=== PATIENT | male | born 1950 | race Caucasian/White ===

== ENCOUNTER 2019-12-03 09:01 | Outpatient (CLI) | payer MEDICARE, OTHER, SELFPAY ==
--- NOTE | 2019-12-10 04:54 | SLEEP_ITS ---
CPAP Titration DATE OF STUDY: 12/03/2019 ORDERING PHYSICIAN: Annia Rico M.D. REASON FOR THIS STUDY: Obstructive sleep apnea syndrome on a prior test. HISTORY: This 69-year-old man is 71 inches tall, weighing 215 pounds with a body mass index of 30. On a prior study April 17, 2019, he had an apnea-hypopnea index of 26.6 and a supine REM index of 46.4, which is severe. His minimum saturation was 83%. He had an atrial fibrillation event in March and was hospitalized for it. He did not have atrial fibrillation on the prior sleep study. He does have sleep-related complaints including occasional sweating excessively at night and occasionally falling asleep during the day, but never involuntarily. He rarely falls asleep while driving. He reported waking 4 to 5 times at night to rollover and then will fall back asleep shortly. He does take naps. He feels better in the afternoon and evening compared to the morning. He drinks 1 cup of coffee in the morning. His sleep quality has improved since he retired. He does not awaken with a dry mouth. He has occasional swelling in his ankles toward the end of the day. He has GERD, severe nasal inflammation and is being treated for both of these. He returns for a CPAP titration after we talked about the risk of recurrent atrial fibrillation with untreated sleep apnea. MEDICAL COMORBIDITIES: Episode of atrial fibrillation in March 2019, remote peptic ulcer disease, snoring, psoriasis, anemia, obstructive sleep apnea syndrome on a prior test April 17, 2019, and chronic rhinitis. MEDICATIONS: 1. Zyrtec 1 daily. 2. Vitamin D daily. 3. Vitamin B12 daily. 4. Multivitamins daily. 5. [place]-3 fatty acids daily. 6. Omeprazole 40 mg daily. 7. Vitamin E daily. 8. He also takes apixaban 5 mg p.o. b.i.d. 9. Diltiazem 180 mg extended release daily. 10. Flonase daily. HABITS: No tobacco. Rare alcohol. No recreational drugs. DESCRIPTION OF THE STUDY: On the [place] Sleepiness Scale, his score was 6. This was conducted as a full night CPAP titration using the CO Everywhere multiple channel system including EOG, EEG, submental EMG, EKG, nasal and oral airflow using thermistors and nasal pressure sensors, chest and abdominal belts, body position data and pulse oximetry. This study was scored using [facility] guidelines. Duration of the study was 480 minutes. The sleep time was 231 minutes. The sleep efficiency was 48.2%. Sleep latency was 11.3 minutes. REM latency was 79 minutes. He had 46 awakenings and spent 50.7% of the study awake after sleep onset 237 minutes. Sleep architecture showed 9.3% stage I sleep, 29.9% stage II sleep, no stage III sleep, and 10.1% stage REM. He spent 7.4% of this study supine. He had 3 REM episodes. His sleep was extremely fragmented with long episodes of wakefulness throughout the entire study and frequent shifts between stage wake, stage I, and stage II. The apnea-hypopnea index was 12.7. The obstructive index was 12.2, and the central index was 0.5. He had 1 obstructive hypopnea in supine REM for an index of 4.6. He had 6 obstructive hypopneas in non-supine REM for an index of 10.4. He had 1 obstructive apnea and 3 obstructive hypopneas in supine non-REM for an index of 11.1. He had 15 obstructive hypopneas, 2 central apneas and 21 obstructive hypopneas in non-supine non-REM for an index of 14.1. The supine index was 8.7, and the non-supine index was 13.4. The minimum desaturation was 84%. He spent 4.9 minutes below 88%, 1% of the study. He had 47 desaturations of 4% or greater for an index of 5.9. REM desaturation index was 11.4. AROUSALS: Eighty-five arousals for an index of 10.6. He had 10 apneas for an index of 1.3, 14 hypopneas for an index of 1.8, 10, snores for an index of 1.3, 40 spon
== END 2019-12-03 09:02 | disposition home or self-care (01) ==
LOC: ANHCSM 09:05
PROVIDERS: PCP Family Medicine; Visit Provider Internal Medicine Critical Care Medicine
DX: G47.33 Obstructive sleep apnea (adult) (pediatric) (principal)
CPT/HCPCS: 95811

== ENCOUNTER → 2020-03-28 11:55 | Outpatient (CLI) | payer MEDICARE, OTHER, SELFPAY ==
--- NOTE | ~2020-03-28 | XR_ITS ---
XR clavicle RT 03/28/2020 12:18 Indication: Right sternoclavicular joint swelling. No recent trauma. Procedure: 2 views right clavicle Comparison: No prior studies for comparison. Findings: Mild degenerative changes of the acromioclavicular and glenohumeral joints. No fracture or traumatic malalignment. Visualized lung parenchyma is unremarkable. No erosive changes. Impression: 1: No acute bone or joint abnormality. Reviewed, dictated and finalized at location A. Impression: 1: No acute bone or joint abnormality.
== END ==
PROVIDERS: PCP Family Medicine; Visit Provider Family Medicine
DX: M25.811 Other specified joint disorders, right shoulder (principal)
CPT/HCPCS: 73000

== ENCOUNTER → 2020-08-09 09:08 | Outpatient (CLI) | payer MEDICARE, OTHER, SELFPAY ==
--- NOTE | ~2020-08-09 | XR_ITS ---
XR hand BI arthritis min 3V 08/09/2020 09:27 Indication: Bilateral hand pain. Psoriasis. Procedure: 4 views of each hand Comparison: No prior studies for comparison. Findings: There is mild bilateral polyarticular osteoarthritis of the interphalangeal joints as well as the first MCP joints. There is fixed flexion deformity at the left fifth PIP joint. No erosive diego nges. No acute fracture or traumatic malalignment. No focal soft tissue abnormality. No radiopaque fo reign bodies. Impression: 1: Mild polyarticular osteoarthritis of the hands. Reviewed, dictated and finalized at location A. Impression: 1: Mild polyarticular osteoarthritis of the hands.
== END ==
PROVIDERS: PCP Family Medicine; Visit Provider Family Medicine
DX: L40.9 Psoriasis, unspecified (principal); M13.0 Polyarthritis, unspecified
CPT/HCPCS: 73130

== ENCOUNTER 2021-10-28 10:29 | Outpatient (RCR) | payer MEDICARE, OTHER, SELFPAY ==
[2021-10-28] MEDS: FAMOTIDINE 20 MG TABLET PO (15:38)
[2021-10-28] MEDS: ACETAMINOPHEN 325 MG TABLET 650 MG PO (15:38)
[2021-10-28] MEDS: diphenhydrAMINE HCl CAP 25 MG CAPSULE PO (15:38)
[2021-10-28 15:49] VITALS: BP 143/68; PULSE 91; TEMP 37.2; O2SAT 97
[2021-10-28 16:49] VITALS: BP 128/64
== END 2021-10-28 17:00 ==
LOC: AMCINF 10:29
PROVIDERS: PCP Physician Assistant Medical; Visit Provider Internal Medicine Hematology & Oncology
DX: U07.1 COVID-19 (principal); I10 Essential (primary) hypertension; I25.10 Atherosclerotic heart disease of native coronary artery without angina pectoris; D84.9 Immunodeficiency, unspecified
CPT/HCPCS: A9270; M0243; Q0244

== ENCOUNTER 2022-02-24 01:38 | Day surgery (SDC) | payer MEDICARE, OTHER, SELFPAY ==
[2022-02-23 14:19] VITALS: BMI 32.1
--- NOTE | 2022-02-24 07:00 | ECG_ITS ---
Measurements Intervals [place] Rate: 62 P: 35 MO: 219 QRS: 53 QRSD: 98 T: 21 QT: 432 QTc: 439 Interpretive Statements SINUS RHYTHM WITH OCCASIONAL SUPRAVENTRICULAR PREMATURE COMPLEXES COMPARED TO ECG 02/24/2022 07:20:26 SINUS RHYTHM NOW PRESENT Electronically Signed On 02-24-2022 13:48:59 CDT by Ivis Mercado M.D.
[2022-02-24 07:25] VITALS: BP 121/87; PULSE 80; RESP 11; TEMP 36.2; O2SAT 95
--- NOTE | 2022-02-24 07:41 | SUR.PREOP ---
chest shaved with electric razor per Anjelica Diamond RN- no complications
[2022-02-24] MEDS: SODIUM CHLORIDE 0.9% IV 500 ML 30 ML (07:42)
--- NOTE | 2022-02-24 07:43 | SUR.PREOP ---
500 ml bag of NS hung at 30 ml/HR instead of 1,000ml bag per Anjelica CHAMORRO.
[2022-02-24 07:57] LABS: Alanine Aminotransferase 26 U/L (4-50); Albumin Level 4.2 g/dL (3.5-5.1); Alkaline Phosphatase 53 U/L (38-126); Anion Gap 4 mmol/L (8-16); Aspartate Amino Transferase 30 U/L (17-59); Bilirubin,Total 0.5 mg/dL (0.2-1.3); Blood Urea Nitrogen 15 mg/dL (9-20); Calcium 9.1 mg/dL (8.4-10.2); Carbon Dioxide 30 mmol/L (22-30); Chloride 105 mmol/L (98-107); Estimated CRCL calculation 72 ml/min; Estimated Glomerular Filt Rate > 60; Glucose 106 mg/dL (65-110); Potassium 3.9 mmol/L (3.4-5.0); Sodium 139 mmol/L (137-145)
[2022-02-24 08:20] LABS: Magnesium 2.1 mg/dL (1.6-2.3)
--- NOTE | 2022-02-24 08:49 | PM.IMHP ---
H&P: HPI History of Present Illness Date/Time: 02/24/22 08:49 Chief Complaint: Recurrent atrial fibrillation, here for cardioversion Narrative: Mr. Robbin Menezes is a 71-year-old male with history of paroxysmal atrial fibrillation diagnosed in 2019. He has been maintained on Eliquis and diltiazem with rare episodes. He went back into atrial fibrillation last Tuesday and remains in atrial fibrillation this week. He does feel some breathlessness with activity, such as climbing stairs or cutting the grass. He has not been back to [facility] Heart rate is generally been controlled with extra diltiazem. He is here for elective electrical cardioversion. He has not missed any doses of Eliquis. He has a history of sleep apnea. Review of Systems Constitutional: Constitutional: Reports no additional constitutional complaints Eyes: Eyes: Reports no additional eye complaints ENT: Denies epistaxis Cardiovascular: Cardiovascular: Denies chest pain, Denies leg edema, Denies lightheadedness and Reports palpitations Respiratory: Respiratory: Reports dyspnea on exertion Gastrointestinal: Gastrointestinal: Denies abdominal pain Genitourinary: Genitourinary: Denies hematuria Musculoskeletal: Musculoskeletal: Reports no additional musculoskeletal complaints Integumentary/Breasts: Skin/Breast: Denies rash Neurologic: Denies confusion Psychiatric: Psychiatric: Denies behavioral changes [facility] Past Medical History Medical History (Updated 02/24/22 @ 08:54 by Ivis Mercado MD) Internal derangement of right knee Obesity (BMI 30.0-34.9) Paroxysmal atrial fibrillation Psoriatic arthritis Upper GI bleeding Family History Family History Sibling Diabetes mellitus Hypertension Family history of malignant neoplasm of breast in first degree relative Mother Family history of glaucoma Father Family history of arthritis Malignant neoplasm of prostate Grandparent Carcinoma of colon Social History Social History (Updated 02/24/22 @ 08:53 by Ivis Mercado MD) Social History: to [employer], has a degree in [employer], 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 Smoking status: Never smoker Second hand tobacco smoke exposure: No Alcohol intake: current Drinks per week: 2 Alcohol use details: beer or whiskey typically 2 drinks aw [place] Living arrangements: with family Spiritual care concerns: No Meds Home Medications and Allergies Home Medications Medication Instructions Recorded Confirmed Type apixaban 5 mg tablet 5 mg PO BID 10/10/19 02/24/22 History cetirizine 10 mg tablet 10 mg PO DAILY 10/10/19 02/24/22 History cholecalciferol (vitamin D3) 25 1,000 unit PO DAILY 10/10/19 02/24/22 History mcg (1,000 unit) capsule cyanocobalamin (vitamin B-12) 1,000 mcg PO DAILY 10/10/19 02/24/22 History 1,000 mcg tablet diltiazem HCl 180 mg capsule,24 180 mg PO DAILY 10/10/19 02/24/22 History hr,extended release multivitamin 1 tablet PO DAILY 10/10/19 02/24/22 History omega-3 fatty acids 1,000 mg 1,000 mg PO DAILY 10/10/19 02/24/22 History capsule folic acid 1 mg tablet 1 mg PO DAILY 12/31/20 02/24/22 History calcipotriene 0.005 % topical cream See Rx Instructions .ROUTE 01/02/21 02/24/22 Rx .COMPLEX #60 gram omeprazole 40 mg capsule,delayed See Rx Instructions .ROUTE 03/23/21 02/24/22 Rx release .COMPLEX #90 cap ipratropium bromide 2 spray INTRANASAL BID 10/28/21 02/24/22 History diltiazem HCl 60 mg PO DAILY PRN 02/23/22 02/24/22 History methotrexate sodium 15 mg PO WEEKLY 02/23/22 02/24/22 History vitamin E 400 unit PO DAILY 02/23/22 02/24/22 History Allergies Allergy/AdvReac Type Severity Reaction Status Date / Time diclofenac Allergy Intermediate Rash Verified 02/24/22 07:27 celecoxib Allergy Mild Other Verified 02/24/22 07:27 latex Allergy Mild Rash Verified 02/24
--- NOTE | 2022-02-24 08:55 | WPDMODSED ---
Moderate Sedation Note-Pt Data Patient Data Diagnosis: Patient was paroxysmal atrial fibrillation, now persistent, here for electrical cardioversion. Symptomatic with CHILDS. Chronically anticoagulated with Eliquis, has not missed any doses. Present Complaint: Atrial fibrillation Procedure to be performed/Plan: Conscious sedation Elective electrical cardioversion Allergies Allergy/AdvReac Type Severity Reaction Status Date / Time diclofenac Allergy Intermediate Rash Verified 02/24/22 07:27 celecoxib Allergy Mild Other Verified 02/24/22 07:27 latex Allergy Mild Rash Verified 02/24/22 07:27 Home Medications Medication Instructions Recorded Confirmed Type apixaban 5 mg tablet 5 mg PO BID 10/10/19 02/24/22 History cetirizine 10 mg tablet 10 mg PO DAILY 10/10/19 02/24/22 History cholecalciferol (vitamin D3) 25 1,000 unit PO DAILY 10/10/19 02/24/22 History mcg (1,000 unit) capsule cyanocobalamin (vitamin B-12) 1,000 mcg PO DAILY 10/10/19 02/24/22 History 1,000 mcg tablet diltiazem HCl 180 mg capsule,24 180 mg PO DAILY 10/10/19 02/24/22 History hr,extended release multivitamin 1 tablet PO DAILY 10/10/19 02/24/22 History omega-3 fatty acids 1,000 mg 1,000 mg PO DAILY 10/10/19 02/24/22 History capsule folic acid 1 mg tablet 1 mg PO DAILY 12/31/20 02/24/22 History calcipotriene 0.005 % topical cream See Rx Instructions .ROUTE 01/02/21 02/24/22 Rx .COMPLEX #60 gram omeprazole 40 mg capsule,delayed See Rx Instructions .ROUTE 03/23/21 02/24/22 Rx release .COMPLEX #90 cap ipratropium bromide 2 spray INTRANASAL BID 10/28/21 02/24/22 History diltiazem HCl 60 mg PO DAILY PRN 02/23/22 02/24/22 History methotrexate sodium 15 mg PO WEEKLY 02/23/22 02/24/22 History vitamin E 400 unit PO DAILY 02/23/22 02/24/22 History Current Medications: Active Medications Sodium Chloride (Normal Saline Iv) 1,000 mls @ 30 mls/hr IV CONT .Q24H ARIA Last Admin: 02/24/22 07:42 Dose: Not Given Documented by: Sedation/Anesthesia: No previous sedation/anesthesia problems (including family history). [facility] Past Medical History Medical History (Updated 02/24/22 @ 08:54 by Ivis Mercado MD) Internal derangement of right knee Obesity (BMI 30.0-34.9) Paroxysmal atrial fibrillation Psoriatic arthritis Upper GI bleeding Family History Family History Sibling Diabetes mellitus Hypertension Family history of malignant neoplasm of breast in first degree relative Mother Family history of glaucoma Father Family history of arthritis Malignant neoplasm of prostate Grandparent Carcinoma of colon Social History Social History (Updated 02/24/22 @ 08:53 by Ivis Mercado MD) Social History: to [employer], has a degree in [employer], 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 Smoking status: Never smoker Second hand tobacco smoke exposure: No Alcohol intake: current Drinks per week: 2 Alcohol use details: beer or whiskey typically 2 drinks aw [place] Living arrangements: with family Spiritual care concerns: No Mod Sed Physical Exam Physical Exam Pre Procedural Exam: Normal: Appearance, Eyes, Ears, Nose, Neck, Throat, Airway, Lungs, Heart Size, Heart Rate, Neuro Exam, Abdomen, Extremities and Skin and Variation: Heart Rhythm (Irregular) Hours since solid foods: 12 Hours since liquid intake: 12 Mallampati Classification: class III Internal Medicine - PN: Obj Da Vital Signs Vital Signs: Vital Signs - 24 hr 02/24/22 07:25 Temperature 97.2 F L Pulse Rate 80 Respiratory Rate 11 L Blood Pressure 121/87 Pulse Oximetry 95 Meds/Results Medications: Active Medications Generic Name Dose Route Start Last Admin Trade Name Freq PRN Reason Stop Dose Admin Sodium Chloride 1,000 mls @ 30 mls/hr 02/24/22 07:00 02/24/22 07:42 Normal Saline Iv IV CONT Not Given .Q24H ARIA Labs CBC & Chem 7:
--- NOTE | 2022-02-24 09:00 | ECG_ITS ---
Measurements Intervals [place] Rate: 77 P: [place]: 0 QRS: 33 QRSD: 94 T: 6 QT: 358 QTc: 406 Interpretive Statements ATRIAL FIBRILLATION NONSPECIFIC ST CHANGES COMPARED TO ECG 03/31/2019 22:14:23 ATRIAL FIBRILLATION NOW PRESENT Electronically Signed On 02-24-2022 13:46:21 CDT by Ivis Mercado M.D.
--- NOTE | 2022-02-24 09:20 | SUR.OPER ---
Patient sync cardioverted with 150J now back in NSR. 2mg versed and 75mcg fentanyl given ivp per Rupinder CHAMORRO.
[2022-02-24 09:30] VITALS: BP 111/75; PULSE 62; RESP 14
[2022-02-24 09:45] VITALS: BP 109/74; PULSE 60; RESP 16
--- NOTE | 2022-02-24 09:58 | PM.OP ---
Procedure Note - Brief Procedure Note - Brief Date of procedure: 02/24/22 Pre-op diagnosis: a-fib Post-op diagnosis: Same Procedure performed: Conscious sedation elective electrical cardioversion Description of procedure: Successful cardioversion to sinus rhythm Surgeon: Ivis Mercado MD
--- NOTE | 2022-02-24 09:59 | P.OP_ITS ---
Procedure Note - Detailed Date of Procedure 02/24/22 Pre-op Diagnosis a-fib Post-op Diagnosis Same Procedure Performed Conscious sedation Elective electrical cardioversion Surgeon Ivis Mercado MD Anesthesia Local (With conscious sedation) Indications Robbin Menezes is a 71-year-old male with history of paroxysmal atrial fibrillation diagnosed in 2019. He has been maintained on Eliquis and diltiazem with rare episodes. He went back into atrial fibrillation last Tuesday and remains in atrial fibrillation this week. He does feel some breathlessness with activity, such as climbing stairs or cutting the grass. He has not been back to his regular exercise at the [facility] yet. Heart rate is generally been controlled with extra diltiazem. He is here for elective electrical cardioversion. He has not missed any doses of Eliquis. He has a history of sleep apnea and HTN.. Description of Procedure Conscious sedation: Assessment: The patient has no history of anesthesia problems. The patient's oropharynx is clear. The patient was deemed to be a good candidate for conscious sedation. The patient had continuous hemodynamic monitoring during the procedure. Start time: 9:10 a.m. Completion time: 9:26 a.m. Total conscious sedation time: 16 minutes Medications: Versed 2 mg, fentanyl 100 mcg IV push Trained observer:Cristóbal Deluca RN Outcome: The patient tolerated the procedure well with no complications. Cardioversion: After informed consent and the above conscious sedation, the patient underwent elective electrical synchronized cardioversion with 150 joules of biphasic energy and converted to normal sinus rhythm. There were no compli cations. Follow-up: Will arrange for an office follow-up visit. Continue usual medications with Eliquis and Cardizem CD 180 mg daily. Will schedule an outpatient stress test for further evaluation and also to determine if we can use an anti rhythmic safely such as flecainide or propafenone as I suspect the patient will have more frequent and recurrent episodes of atrial fibrillation in the future. Complications None Condition Stable Disposition Observation
[2022-02-24 10:01] VITALS: BP 110/76; PULSE 61; RESP 12
== END 2022-02-24 10:30 | disposition home or self-care (01) ==
PROVIDERS: PCP Family Medicine; Visit Provider Internal Medicine Cardiovascular Disease
PROC: 5A2204Z Restoration of Cardiac Rhythm, Single (ICD-10-PCS; principal; 2022-02-24 08:30)
DX: I48.0 Paroxysmal atrial fibrillation (principal); G47.30 Sleep apnea, unspecified; I10 Essential (primary) hypertension; Z79.01 Long term (current) use of anticoagulants; L40.50 Arthropathic psoriasis, unspecified
CPT/HCPCS: 36415; 80053; 83735; 92960; J2250; J3010; J7040

== ENCOUNTER 2022-12-07 01:34 | Day surgery (SDC) | payer MEDICARE, OTHER, SELFPAY ==
[2022-11-26 13:50] VITALS: BMI 31.4
[2022-12-07 07:22] VITALS: BP 118/83; PULSE 79; RESP 20; TEMP 36.1; O2SAT 98
[2022-12-07] MEDS: LACTATED RINGERS 1,000 ML 150 ML IV CONT (07:32)
--- NOTE | 2022-12-07 07:54 | PM.HPGS ---
History of Present Illness History of Present Illness Consent: Risks, benefits, and alternatives have been discussed and questions answered. Patient agrees to proceed with procedure. Chief complaint: family hx colon polyps Narrative: Robbin Menezes is a 72 year old male Presents for screening colonoscopy. Patient's current weight appetite and bowel movements are normal. Patient denies abdominal pain. He has had no bleeding. Family history is significant is mother had colon polyps. A grandfather and an uncle both have had colon cancer. Patient's previous colonoscopy 2015 was unremarkable. Patient returns today for screening colonoscopy. Review of Systems Review of Systems: Review of systems is noncontributory. [facility] Past Medical History Medical History (Updated 12/07/22 @ 07:55 by Joe Mg MD) Internal derangement of right knee Obesity (BMI 30.0-34.9) Paroxysmal atrial fibrillation Psoriatic arthritis Upper GI bleeding Family History Family History Sibling Diabetes mellitus Hypertension Family history of malignant neoplasm of breast in first degree relative Mother Family history of glaucoma Father Family history of arthritis Malignant neoplasm of prostate Grandparent Carcinoma of colon Social History Social History (Updated 10/27/22 @ 11:09 by Fidelia Davey MA) Social History: to [employer], has a degree in [employer], 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 Smoking status: Never smoker Second hand tobacco smoke exposure: No Alcohol intake: current Drinks per week: 2 Alcohol use details: beer or whiskey typically 2 drinks aw [place] Substance use: never Substance use type: does not use Lack of Transportation: No Lack of Food: Never True Current Housing: I Have Housing Concerned About Future Housing: No Difficulty Paying Gas/Electric Bills: No Difficulty Paying for Meds: No Currently Unemployed: No Education: Master's Degree or Higher Living arrangements: with family Spiritual care concerns: No Meds Home Medications and Allergies Home Medications Medication Instructions Recorded Confirmed Type apixaban 5 mg tablet (Eliquis) 5 mg PO BID 10/10/19 12/07/22 History cetirizine 10 mg tablet (Zyrtec) 10 mg PO DAILY 10/10/19 11/26/22 History cyanocobalamin (vitamin B-12) 1,000 mcg PO DAILY 10/10/19 11/26/22 History 1,000 mcg tablet (Vitamin B-12) diltiazem HCl 180 mg capsule,24 180 mg PO DAILY 10/10/19 11/26/22 History hr,extended release folic acid 1 mg tablet 1 mg PO DAILY 12/31/20 11/26/22 History diltiazem HCl 60 mg tablet 60 mg PO DAILY PRN Atrial 02/23/22 11/26/22 History Fibrillation methotrexate sodium 2.5 mg tablet 10 mg PO WEEKLY 02/23/22 11/26/22 History calcipotriene 0.005 % topical cream See Rx Instructions .Route 07/07/22 11/26/22 Rx .COMPLEX #60 grams sodium,potassium,mag sulfates 17.5 See Rx Instructions PO .COMPLEX 10/29/22 11/26/22 Rx gram-3.13 gram-1.6 gram oral soln #354 mL (Suprep Bowel Prep Kit) Adults Multivitamin 1 cap PO DAILY 11/26/22 11/26/22 History cholecalciferol (vitamin D3) 50 2,000 unit PO DAILY 11/26/22 11/26/22 History mcg (2,000 unit) capsule (Vitamin D3) flecainide 50 mg tablet 50 mg PO BID 11/26/22 11/26/22 History fluticasone propionate 50 2 spray intranasal DAILY 11/26/22 11/26/22 History mcg/actuation nasal spray,suspension omega 0-jeh-iwi-fish oil 1,000 mg 1 cap PO DAILY 11/26/22 11/26/22 History (120 mg-180 mg) capsule (Fish Oil) omeprazole 40 mg capsule,delayed 40 mg PO DAILY 11/26/22 11/26/22 History release pyridoxine (vitamin B6) 100 mg 100 mg PO DAILY 11/26/22 11/26/22 History tablet vitamin E 400 unit tablet 400 unit PO DAILY 11/26/22 11/26/22 History Allergies Allergy/AdvReac Type Severity Reaction Status Date / Time diclofenac Allergy Intermediate Rash Verified
--- NOTE | 2022-12-07 08:07 | WPDANESEPPF ---
Anes - Initial Pre Proc Eval Procedure: Operation Date: 12/07/22 08:30 Proposed Procedures p Screening Colonoscopy - Joe Mg MD Date/Time: 12/07/22 08:07 Surgeon: Joe Mg MD Pre Op Diagnosis: family hx colon polyps Patient Data Age: 72 Gender: M Height: 1.8 m Weight: 103.9 kg Last Vital Signs Temp 97 F L 12/07/22 07:22 Pulse 79 12/07/22 07:22 Resp 20 12/07/22 07:22 BP 118/83 12/07/22 07:22 Pulse Ox 98 12/07/22 07:22 O2 Del Method Room Air 12/07/22 07:22 Allergies Allergy/AdvReac Type Severity Reaction Status Date / Time diclofenac Allergy Intermediate Rash Verified 11/26/22 13:58 celecoxib Allergy Mild Other Verified 11/26/22 13:58 Home Medications Medication Instructions Recorded Confirmed Type apixaban 5 mg tablet (Eliquis) 5 mg PO BID 10/10/19 12/07/22 History cetirizine 10 mg tablet (Zyrtec) 10 mg PO DAILY 10/10/19 11/26/22 History cyanocobalamin (vitamin B-12) 1,000 mcg PO DAILY 10/10/19 11/26/22 History 1,000 mcg tablet (Vitamin B-12) diltiazem HCl 180 mg capsule,24 180 mg PO DAILY 10/10/19 11/26/22 History hr,extended release folic acid 1 mg tablet 1 mg PO DAILY 12/31/20 11/26/22 History diltiazem HCl 60 mg tablet 60 mg PO DAILY PRN Atrial 02/23/22 11/26/22 History Fibrillation methotrexate sodium 2.5 mg tablet 10 mg PO WEEKLY 02/23/22 11/26/22 History calcipotriene 0.005 % topical cream See Rx Instructions .Route 07/07/22 11/26/22 Rx .COMPLEX #60 grams sodium,potassium,mag sulfates 17.5 See Rx Instructions PO .COMPLEX 10/29/22 11/26/22 Rx gram-3.13 gram-1.6 gram oral soln #354 mL (Suprep Bowel Prep Kit) Adults Multivitamin 1 cap PO DAILY 11/26/22 11/26/22 History cholecalciferol (vitamin D3) 50 2,000 unit PO DAILY 11/26/22 11/26/22 History mcg (2,000 unit) capsule (Vitamin D3) flecainide 50 mg tablet 50 mg PO BID 11/26/22 11/26/22 History fluticasone propionate 50 2 spray intranasal DAILY 11/26/22 11/26/22 History mcg/actuation nasal spray,suspension omega 3-ior-cae-fish oil 1,000 mg 1 cap PO DAILY 11/26/22 11/26/22 History (120 mg-180 mg) capsule (Fish Oil) omeprazole 40 mg capsule,delayed 40 mg PO DAILY 11/26/22 11/26/22 History release pyridoxine (vitamin B6) 100 mg 100 mg PO DAILY 11/26/22 11/26/22 History tablet vitamin E 400 unit tablet 400 unit PO DAILY 11/26/22 11/26/22 History Patient hx anesthesia problems: none Family hx anesthesia problems: none Results Review: All pre-operative results and documents have been reviewed as part of the pre-operative evaluation. [facility] Past Medical History Medical History (Updated 12/07/22 @ 07:55 by Joe Mg MD) Internal derangement of right knee Obesity (BMI 30.0-34.9) Paroxysmal atrial fibrillation Psoriatic arthritis Upper GI bleeding Family History Family History Sibling Diabetes mellitus Hypertension Family history of malignant neoplasm of breast in first degree relative Mother Family history of glaucoma Father Family history of arthritis Malignant neoplasm of prostate Grandparent Carcinoma of colon Social History Social History (Updated 10/27/22 @ 11:09 by Fidelia Davey MA) Social History: to [employer], has a degree in [employer], 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 Smoking status: Never smoker Second hand tobacco smoke exposure: No Alcohol intake: current Drinks per week: 2 Alcohol use details: beer or whiskey typically 2 drinks aw [place] Substance use: never Substance use type: does not use Lack of Transportation: No Lack of Food: Never True Current Housing: I Have Housing Concerned About Future Housing: No Difficulty Paying Gas/Electric Bills: No Difficulty Paying for Meds: No Currently Unemployed: No Education: Master's Degree or Higher Living arrangements: with family Spiritual care concerns
[2022-12-07 08:46] VITALS: BP 114/73; PULSE 69; RESP 14; O2SAT 100
[2022-12-07 08:56] VITALS: BP 120/88; PULSE 60; RESP 16; O2SAT 100
[2022-12-07 09:06] VITALS: BP 140/90; PULSE 64; RESP 17; O2SAT 99
== END 2022-12-07 09:11 | disposition home or self-care (01) ==
PROVIDERS: PCP Family Medicine; Visit Provider Internal Medicine Gastroenterology
PROC: 0DJD8ZZ Inspection of Lower Intestinal Tract, Via Natural or Artificial Opening Endoscopic (ICD-10-PCS; CPT 45378; principal; 2022-12-07 08:30)
DX: Z12.11 Encounter for screening for malignant neoplasm of colon (principal); K64.8 Other hemorrhoids; K57.30 Diverticulosis of large intestine without perforation or abscess without bleeding; Z83.71 Family history of colonic polyps; I48.0 Paroxysmal atrial fibrillation; L40.50 Arthropathic psoriasis, unspecified; Z79.01 Long term (current) use of anticoagulants; E66.9 Obesity, unspecified; Z68.31 Body mass index [BMI] 31.0-31.9, adult
CPT/HCPCS: G0105; J2704; J7120

== ENCOUNTER 2024-03-12 08:33 | Outpatient (CLI) | payer MEDICARE, OTHER, SELFPAY ==
--- NOTE | ~2024-03-12 | XR_ITS ---
EXAMINATION: XR cervical spine min 6V DATE: 03/12/2024 08:58 INDICATION: Neck pain. TECHNIQUE: 6 views of cervical spine including flexion and extension views were obtained. COMPARISON: Cervical spine MRI 03/12/2024 FINDINGS: There is 2 mm retrolisthesis of C4 on C5 and C6 on C7. There is kyphosis of cervical spine. The spine is hypomobile with extension. Vertebral body heights are normal. There is severely decreas ed disc height at C2-C3, C4-C5, C5-C6, and C6-C7. There is multilevel severe facet joint osteoarthrit is. There is mild central canal stenosis at C4-C5, C5-C6, and C6-C7. On the right, there is moderate neural foraminal stenosis at C3-C4, C5-C6, and C6-C7. On the left, there is moderate neural foraminal stenosis at C4-C5 and C5-C6. No prevertebral soft tissue swelling. IMPRESSION: 1. Severe cervical spondylosis. Reviewed, dictated and finalized at location A.
--- NOTE | ~2024-03-12 | MR_ITS ---
EXAMINATION: MR cervical spine wo con DATE: 03/12/2024 09:15 INDICATION: Cervical radiculopathy TECHNIQUE: Magnetic resonance imaging (MRI) of the cervical spine was performed without intravenous c ontrast. Sequences included sagittal T2-weighted FSE, sagittal T2-weighted FS FSE, sagittal T1-weight ed FSE, axial MERGE and axial T2-weighted FSE. COMPARISON: 08/25/07 FINDINGS: 1-2 mm anterolisthesis C3 on C4, one-2 mm retrolisthesis C4 on C5 and C5 on C6. 2 mm retrolisthesis C 6 on C7. 3 mm anterolisthesis C7 on T1 and 2 mm retrolisthesis T1 and T2. Vertebral body heights are normal. Severe osteoarthritis at the atlantoaxial articulation with suggestion of possible old heale d fracture of the odontoid process. There are mild scattered fibrofatty and fibrovascular degenerativ e endplate changes in the cervical and upper thoracic spine. Marrow signal is otherwise unremarkable. Severe disc height loss at C2-C3, C4-C5 through C6-C7 and at T2-T3 and T3-T4. Moderate disc height l oss at C7-T1 and mild disc height loss at C3-C4. Cord signal intensity is normal. Cervical soft tissu es are unremarkable. The following disc levels are specifically discussed: C2-C3: The disc does not extend beyond the endplate margin. Small left-sided posterior endplate osteo phytes. There is severe bilateral uncovertebral joint osteoarthritis. There is moderate left and ketan re right facet joint osteoarthritis. There is moderate bilateral, right greater than left neural fora sera stenosis. There is mild central canal stenosis. C3-C4: Disc is mildly bulging. There is mild left and moderate right uncovertebral joint osteoarthrit is. There is severe bilateral facet joint osteoarthritis. There is moderate left and moderate to ketan re right neural foraminal stenosis. There is mild central canal stenosis. C4-C5: Posterior disc osteophyte complex. There is severe bilateral uncovertebral joint osteoarthriti s. There is moderate left and moderate to severe right facet joint osteoarthritis. There is moderate right and severe left neural foraminal stenosis. There is mild central canal stenosis with indentatio n of the ventral surface of the cord. C5-C6: Posterior disc osteophyte complex. There is severe bilateral uncovertebral joint osteoarthriti s. There is moderate bilateral facet joint osteoarthritis. There is moderate to severe bilateral neur al foraminal stenosis. There is mild to moderate central canal stenosis with indentation of the ventr al surface of the cord. C6-C7: Posterior disc osteophyte complex. There is severe bilateral uncovertebral joint osteoarthriti s. There is moderate bilateral facet joint osteoarthritis. There is moderate to severe left and sever e right neural foraminal stenosis. There is moderate central canal stenosis. C7-T1: The disc does not extend beyond the more posterior T1 endplate margin. There is mild bilateral uncovertebral joint osteoarthritis. There is severe bilateral facet joint osteoarthritis. There is m oderate to severe bilateral neural foraminal stenosis. There is mild central canal stenosis. IMPRESSION: 1. Severe cervical spondylosis. Reviewed, dictated and finalized at location B.
== END 2024-03-12 08:34 | disposition home or self-care (01) ==
LOC: ANHIMG 08:35
PROVIDERS: PCP Family Medicine; Visit Provider Family Medicine
DX: M47.22 Other spondylosis with radiculopathy, cervical region (principal)
CPT/HCPCS: 72052; 72141

== ENCOUNTER 2024-08-24 10:58 | Outpatient (CLI) | payer MEDICARE, OTHER, SELFPAY ==
--- NOTE | ~2024-08-24 | XR_ITS ---
EXAMINATION: XR lumbar spine min 4V DATE: 08/24/2024 11:13 INDICATION: Left-sided low back pain. TECHNIQUE: 5 views of lumbar spine were obtained. COMPARISON: None. FINDINGS: There is 3 mm retrolisthesis of L2 on L3. There is 7 degrees dextrocurvature of lumbar spin e. There is mild chronic anterior wedging of L1 vertebral body. There is severely decreased disc heig ht at L1-L2 with likely interbody fusion. There is moderately decreased disc height at L2-L3, severel y decreased disc height at L3-L4, moderately decreased disc height at L4-L5, and severely decreased d isc height at L5-S1. There is multilevel severe facet joint osteoarthritis. IMPRESSION: 1. Severe lumbar spondylosis. Reviewed, dictated and finalized at location A.
--- NOTE | ~2024-08-24 | XR_ITS ---
XR hip LT 2V w AP pelvis 08/24/2024 11:13 Indication: Left hip pain Procedure: AP pelvis and 2 views left hip Comparison: No prior studies for comparison. Findings: Pelvic rings are intact. Sacral foramen are symmetric. Mild osteoarthritis of the hips. The re is lower lumbar spondylosis. There are pelvic phleboliths. Mild osteitis pubis. No fracture or tra umatic malalignment. Impression: 1: Mild osteoarthritis of the hips. Reviewed, dictated and finalized at location B. Impression: 1: Mild osteoarthritis of the hips.
== END 2024-08-24 10:59 | disposition home or self-care (01) ==
LOC: GOSHIMG 10:59
PROVIDERS: PCP Chiropractor; Visit Provider Family Medicine
DX: M47.896 Other spondylosis, lumbar region (principal); M16.12 Unilateral primary osteoarthritis, left hip; Z98.890 Other specified postprocedural states
CPT/HCPCS: 72110; 73502

== ENCOUNTER 2025-10-01 12:57 | Outpatient (CLI) | payer MEDICARE, OTHER, SELFPAY ==
--- NOTE | ~2025-10-01 | MR_ITS ---
EXAMINATION: MR brain IAC wo/w con DATE: 10/01/2025 14:07 INDICATION: Asymmetrical hearing loss. TECHNIQUE: Magnetic resonance imaging (MRI) of the brain and brainstem was performed without and with 20 mL MultiHance intravenous contrast. COMPARISON: None. FINDINGS: There are scattered areas of nonspecific increased T2-weighted signal intensity in the cerebral white matter, which is within normal limits for the patient's age. There is no intracranial hemorrhage, acute infarction, or abnormal intracranial mass lesion. The ventricles are normal in size. The internal auditory canals, inner ears, tympanic cavities, and mastoid air cells are normal. There is mild mucosal thickening in left maxillary sinus. There are likely changes of ocular lens replacement surgeries. IMPRESSION: 1. Normal aging brain. Reviewed, dictated and finalized at location E. RITY SYSTEM ANALYST IMPRESSION: 1. Normal aging brain.
--- OUTSIDE RECORDS SUMMARY | 2025-10-01 13:53 | XMS_ITS | Encounter Summary ---
Author Organization [facility] Address [address] [place] [address] Care Team Providers Care Alligator Shear Operator Name Role Phone Unavailable Primary Care Provider Unavailabl e Encounter Details Date Type Department Care Team (Late st Contact Info) Description 08/14/2024 Lab Requisition [facility] - DermPath Lab [address] [facility], [place] [address] Nori Higgins MD [address] [facility] 3L [place] [address] Social History Tobacco Use Types Packs/Day Years Used Date Smoking Tobacco: Never Assessed Sex and Gender Information Value Date Recorded Sex Assigned at Not on file Legal Sex Male 1:40 PM CDT Gender Identity Not on file Sexual Orientation Not on file documented as of this encounter Plan of Treatment Not on file documented as of this encounter Procedures Procedure Name Priority Date/Time Associated Diagnosis Comments DERMATOPATHOLOGY Routine 08/14/2024 1:22 PM CDT documented in this encounter Results * DERMATOPATHOLOGY (08/14/2024 1:22 PM CDT) Case Report Dermatopathology Report Case: [id number] Authorizing Provider: Nori Higgins MD Collected: 08/14/2024 01:22 PM Ordering Location: [facility] Physician [facility] - Received: 08/15/2024 11:57 AM DermPath Lab Pathologist: Linda Rahman MD Specimens: A) - Skin, left lower thomson B) - Skin, left mid back 2:03 PM CDT DERMATOPATHOLOGY LABORATORY Final Diagnosis Specimen A. 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 SKIN, left mid back: BENIGN VERRUCOUS KERATOSIS (L82.1) 2:03 PM T DERMATOPATHOLOGY LABORATORY at 1403 CDT Clinical History A-B: R/O SCC 2:03 PM CDT DERMATOPATHOLOGY LABORATORY Gross Description Specimen A: Received is one formalin filled container labeled with the patient's name and designated left lower thomson. The specimen consists of a shave biopsy measuring 10x9x1 mm. Jar 0. Specimen B: Received is one formalin filled container labeled with the patient's name and designated left mid back. The specimen consists of a shave biopsy measuring 6x5x1 mm. Jar 0. 2:03 PM T DERMATOPATHOLOGY LABORATORY Microscopic Description Specimen A. SKIN, left lower thomson: There is a dermal proliferation composed of fascicles of spindled and epithelioid cells in a haphazard array among coarse collagen bundles with trapping of collagen at the periphery of the proliferation. The lesion is broadly transected at the base of the specimen. COMMENTS: Given that cellular dermatofibromas are more likely to recur, consideration may be given to complete but conservative removal to reduce the risk of recurrence. Specimen B. SKIN, left mid back: Sections show hyperkeratosis, papillomatosis, hypergranulosis, and acanthosis. These histological findings can be seen in a verruca vulgaris or a seborrheic keratosis. 2:03 PM T DERMATOPATHOLOGY LABORATORY Disclaimer An external and internal positive and negative controls are appropriate for the histochemical, immunohistochemical and immunofluorescence stain(s) in this case (if any), except where stated explicitly. The performance characteristics of the stain(s) cited in this report were developed and its performance characteristic determined by the Dermatopathology Laboratory at [facility], directed by Dr. Liat Kulkarni. These tests need not be, and therefore are not, approved by the [place] Food and Drug Administration. The tests are used for clinical purposes. Billing Codes Specimen Charges Stain Charges 14960 98450 1 1 4 2:03 PM CDT DERMATOPATHOLOGY LABORATORY Embedded Images 2:03 PM CDT DERMATOPATHOLOGY LABORATORY Pathology/Cytology TISSUE SPECIMEN FROM SKIN / Unknown 08/14/2024 1:22 PM CDT 08/15/2024 11:57 AM CDT Miscellaneous samples (specimen) TISSUE SPECIMEN FROM SKIN / Unknown 08/14/2024 1:22 PM CDT 08/15/2024 11:57 AM CDT Nori Higgins MD LAB - PATHOLOGY/CYTOLOGY OR DERABLES Final Result DERMATOPATHOLOGY LABORATORY [facility] - Department of Dermatology [facility] [address] [place] [address], [address] [phone] documented in this encounter Visit Diagnoses Not on filedocumented in this encounter
--- OUTSIDE RECORDS SUMMARY | 2025-10-01 13:53 | XMS_ITS | Encounter Summary ---
Author Organization [facility] Address [address] [place] [address] Care Team Providers Care Rental Clerk Name Role Phone Unavailable Primary Care Provider Unavailabl e Encounter Details Date Type Department Care Team (Late st Contact Info) Description 04/18/2025 Lab Requisition [facility] - DermPath Lab [address] [facility], [place] [address] Nori Higgins MD [address] [facility] 3 [place] [address] Social History Tobacco Use Types Packs/Day Years [...] Priority Date/Time Associated Diagnosis Comments DERMATOPATHOLOGY Routine 04/18/2025 2:34 PM CDT documented in this encounter Results * DERMATOPATHOLOGY (04/18/2025 2:34 PM CDT) Case Report Dermatopathology Report Case: [id number] Authorizing Provider: Nori Higgins MD Collected: 04/18/2025 02:34 PM Ordering Location: [facility] Physician [facility] - Received: 04/19/2025 10:01 AM DermPath Lab Pathologist: Kerry Phelps MD Specimen: Skin, right zoroastrianism 12:26 PM CDT DERMATOPATHOLOGY LABORATORY Final Diagnosis Specimen A. SKIN, right zoroastrianism: SEBORRHEIC KERATOSIS, INFLAMED (L82.0) 12:26 PM CDT DERMATOPATHOLOGY LABORATORY at 1226 CDT Clinical History R/O SCC vs ISK 12:26 PM CDT DERMATOPATHOLOGY LABORATORY Gross Description Specimen A: Received is one formalin filled container labeled with the patient's name and designated right zoroastrianism. The specimen consists of a shave biopsy measuring 2 pieces 6x4x1,10x9x3 mm. Jar 0. 12:26 PM CDT DERMATOPATHOLOGY LABORATORY Microscopic Description Specimen A. SKIN, right zoroastrianism: There is hyperkeratosis, parakeratosis, papillomatosis, and acanthosis of the epidermis. There is a lymphohistiocytic infiltrate within the papillary dermis that is focally lichenoid. 12:26 PM CDT DERMATOPATHOLOGY LABORATORY Disclaimer An external and internal positive and negative controls are appropriate for the histochemical, immunohistochemical and immunofluorescence stain(s) in this case (if any), except where stated explicitly. The performance characteristics of the stain(s) cited in this report were developed and its performance characteristic determined by the Dermatopathology Laboratory at [facility], directed by Dr. Liat Kulkarni. These tests need not be, and therefore are not, approved by the [place] Food and Drug Administration. The tests are used for clinical purposes. Billing Codes Specimen Charges Stain Charges 73639 1 12:26 PM CDT DERMATOPATHOLOGY LABORATORY Embedded Images 12:26 PM CDT DERMATOPATHOLOGY LABORATORY Pathology/Cytolo gy TISSUE SPECIMEN FROM SKIN / Unknown 04/18/2025 2:34 PM CDT 04/19/2025 10:01 AM CDT Nori Higgins MD LAB - PATHOLOGY/CYTOLOGY OR DERABLES Final Result DERMATOPATHOLOGY LABORATORY [facility] - Department of Dermatology [address], [address] [phone] documented in this encounter Visit Diagnoses Not on filedocumented in this encounter
--- OUTSIDE RECORDS SUMMARY | 2025-10-01 13:54 | XMS_ITS | Encounter Summary ---
Author Organization [facility] Address [address] [place] [address] Care Team Providers Care Gericare Aide Teacher Name Role Phone Unavailable Primary Care Provider Unavailabl e Encounter Details Date Type Department Care Team (Late st Contact Info) Description 08/27/2025 Lab Requisition [facility] - DermPath Lab [address] [facility], [place] [address] Stacey Quiroz DO [address] [facility] 3L [place] [address] Neoplasm of uncertain behavior of skin Social History Tobacco Use Types Packs/Day Years [...] Priority Date/Time Associated Diagnosis Comments DERMATOPATHOLOGY Routine 08/27/2025 12:4 5 PM CDT Neoplasm of uncertain behavior of skin documented in this encounter Results * DERMATOPATHOLOGY (08/27/2025 12:45 PM CDT) Case Report Dermatopathology Report Case: [id number] Authorizing Provider: Stacey Quiroz DO Collected: 08/27/2025 12:45 PM Ordering Location: [facility] Physician [facility] - Received: 08/28/2025 04:19 PM DermPath Lab Pathologist: Jazz Rahman MD Specimen: Skin, left forearm 5:03 PM NUTRITION SERVICES AIDE DERMATOPATHOLOGY LABORATORY Final Diagnosis Specimen A. SKIN, left forearm: LARGE CELL ACANTHOMA (D23.9) (see microscopic description) 5:03 PM NUTRITION SERVICES AIDE DERMATOPATHOLOGY LABORATORY at 1703 NUTRITION SERVICES AIDE Clinical History Neoplasm of uncertain behavior vs. SCC vs. LPLK 5:03 PM [facility] DERMATOPATHOLOGY LABORATORY Gross Description Specimen A: Received is one formalin filled container labeled with the patient's name and designated left forearm. The specimen consists of a shave biopsy measuring 11x8x1 mm. Jar 0. 5:03 PM [facility] DERMATOPATHOLOGY LABORATORY Microscopic Description Specimen A. SKIN, left forearm: Sections show compact orthokeratosis with slight acanthosis composed of larger keratinocytes with nuclear variability and basal layer hyperpigmentation. Additional deeper sections were obtained and reviewed. 5:03 PM [facility] DERMATOPATHOLOGY LABORATORY Disclaimer An external and internal positive and negative controls are appropriate for the histochemical, immunohistochemical and immunofluorescence stain(s) in this case (if any), except where stated explicitly. The performance characteristics of the stain(s) cited in this report were developed and its performance characteristic determined by the Dermatopathology Laboratory at [facility], directed by Dr. Liat Kulkarni. These tests need not be, and therefore are not, approved by the [place] Food and Drug Administration. The tests are used for clinical purposes. Billing Codes Specimen Charges Stain Charges 57440 1 5:03 PM [facility] DERMATOPATHOLOGY LABORATORY Embedded Images 5:03 PM [facility] DERMATOPATHOLOGY LABORATORY Pathology/Cytolo gy TISSUE SPECIMEN FROM SKIN / Unknown 08/27/2025 12:45 PM CDT 08/28/2025 4:19 PM CDT us Stacey Quiroz DO LAB - PATHOLOGY/CYTOLOGY ORDERABLES Final Result DERMATOPATHOLOGY LABORATORY [facility] - Department of Dermatology [address] [place] [address], [facility] [phone] documented in this encounter Visit Diagnoses Diagnosis Neoplasm of uncertain behavior of skin documented in this encounter
--- OUTSIDE RECORDS SUMMARY | 2025-10-01 13:54 | XMS_ITS | Clinical Summary ---
Author Organization [facility] Address [address] [facility] [place] [address] Care Team Providers Care Territory Supervisor Name Role Phone Unavailable Primary Care Provider Unavailabl e Source Comments [facility],non-owned Affiliates and Associated Physician Practices is amultiple site organization consisting of ambulatory clinics and hospital sitesin [place], [place], [place] and [place]. This disclosure is being madepursuant to the Care Everywhere program and may not contain all information available regarding this patient. Last updated 18.[facility] Encounters Date Type Department Care Team Description 08/27/2025 Lab Requisition [facility] - DermPath Lab [address] [facility] [place] [address] Stacey Quiroz DO Neoplasm of uncertain behavior of skin from Last 3 Months Social History Tobacco Use Types Packs/Day Years Used Date Smoking Tobacco: Never Assessed Sex and Gender Information Value Date Recorded Sex Assigned at Not on file Legal Sex Male 1:40 PM CDT Gender Identity Not on file Sexual Orientation Not on file Plan of Treatment Health Maintenance Due Date Last Done Comments MEDICARE AWV 12 MONTHS 1950 HEPATITIS C SCREENING 05/30/1966 DTAP/TDAP/TD VACCINES (1 - Tdap) 1967 PNEUMOCOCCAL VACCINE 50+ (1 of 1 - PCV) 1998 ZOSTER VACCINE (1 of 2) 1998 Respiratory Syncytial Virus (RSV) Vaccine Pt: or over 60 yrs (1 - 1-dose 75+ series) 2023 DEPRESSION SCREENING 10/31/2024 COVID-19 VACCINE (1 - 2024-2 6 season) 2025 INFLUENZA VACCINE (#1) 2025 HEPATITIS B VACCINE Aged Out No longe r eligible based on patient's age to complete this topic HIB VACCINE Aged Out No longer eligi ble based on patient's age to complete this topic HPV VACCINE Aged Out No longer eligi ble based on patient's age to complete this topic MENINGOCOCCAL (Group B) VACC INE SHARED DECISION-MAKING Aged Out No longer eligibl e based on patient's age to complete this topic MENINGOCOCCAL GROUPS A/C/Y/W VACCINE Aged Out No longer eligible b ased on patient's age to complete this topic Procedures Procedure Name Priority Date/Time Associated Diagnosis Comments DERMATOPATHOLOGY Routine 08/27/2025 12:4 5 PM CDT Neoplasm of uncertain behavior of skin from Last 3 Months Results * DERMATOPATHOLOGY (08/27/2025 12:45 PM CDT) Case Report Dermatopathology Report Case: [id number] Authorizing Provider: Stacey Quiroz DO Collected: 08/27/2025 12:45 PM Ordering Location: [facility] - Received: 08/28/2025 04:19 PM DermPath Lab Pathologist: Jazz Rahman MD Specimen: Skin, left forearm 5:03 PM [facility] DERMATOPATHOLOGY LABORATORY Final Diagnosis Specimen A. SKIN, left forearm: LARGE CELL ACANTHOMA (D23.9) (see microscopic description) 5:03 PM [facility] DERMATOPATHOLOGY LABORATORY at [address] Clinical History Neoplasm of uncertain behavior vs. SCC vs. LPLK 5:03 PM [facility] DERMATOPATHOLOGY LABORATORY Gross Description Specimen A: Received is one formalin filled container labeled with the patient's name and designated left forearm. The specimen consists of a shave biopsy measuring 11x8x1 mm. Jar 0. 5:03 PM [facility] DERMATOPATHOLOGY LABORATORY Microscopic Description Specimen A. SKIN, left forearm: Sections show compact orthokeratosis with slight acanthosis composed of larger keratinocytes with nuclear variability and basal layer hyperpigmentation. Additional deeper sections were obtained and reviewed. 5:03 PM [facility] DERMATOPATHOLOGY LABORATORY Disclaimer An external and internal positive and negative controls are appropriate for the histochemical, immunohistochemical and immunofluorescence stain(s) in this case (if any), except where stated explicitly. The performance characteristics of the stain(s) cited in this report were developed and its performance characteristic determined by the Dermatopathology Laboratory at [facility], directed by Dr. Liat Kulkarni. These tests need not be, and therefore are not, approved by the [place] Food and Drug Administration. The tests are used for clinical purposes. Billing Codes Specimen Charges Stain Charges 92345 1 5:03 PM [facility] DERMATOPATHOLOGY LABORATORY Embedded Images 5:03 PM [facility] DERMATOPATHOLOGY LABORATORY Pathology/Cytolo gy TISSUE SPECIMEN FROM SKIN / Unknown 08/27/2025 12:45 PM CDT 08/28/2025 4:19 PM CDT us Stacey Quiroz DO LAB - PATHOLOGY/CYTOLOGY ORDERABLES Final Result DERMATOPATHOLOGY LABORATORY [facility] - Department of Dermatology [address], [address] [phone] from Last 3 Months Insurance MEDICARE [place] [id number]
--- OUTSIDE RECORDS SUMMARY | 2025-10-01 13:54 | XMS_ITS | Clinical Summary ---
Author Organization [facility] [place] [address] Address [address] [place] [address] Care Team Providers Care File Keeper Name Role Phone Stevie Payne MD Primary Care Provider [phone] Allergies Active Allergy Reactions Criticality Noted Date Comments Celecoxib Swelling Medium 05/31/2010 Unclassified Drug Rash Medium 08/27/2025 [place]-ran Medications calcipotriene (DOVONOX) 0.005 % creamIndication s:Plaque Psoriasis Apply topically 2 (two) times a day Active vitamin E 400 unit capsule Take 1 capsule (400 Units total) by mouth daily Active omega-3 fatty acids-fish oil 360-1,200 mg capsule Take by mouth daily Active multivitamin capsule Take 1 capsule by mouth daily Active cetirizine 10 mg capsule Take by mouth daily Active cyanocobalamin (Vitamin B-12) 1,000 mcg tabletIndicatio ns:Prevention of Vitamin B12 Deficiency Take 1 tablet (1,000 mcg total) by mouth daily Active cholecalciferol (VITAMIN D-3) 2,000 unit capsule Take 1 capsule (2,000 Units total) by mouth daily Active omeprazole (PriLOSEC) 40 mg capsule Take 1 capsule (40 mg total) by mouth daily Active fluticasone propionate (FLONASE) 50 mcg/actuation nasal spray Administer 1 spray into each nostril daily Active folic acid (FOLVITE) 1 mg tablet Take 1 tablet (1 mg total) by mouth daily Active pyridoxine (VITAMIN B-6) 100 mg tablet Take 1 tablet (100 mg total) by mouth daily Active dilTIAZem (CARDIZEM) 60 mg tabletIndicatio ns:PAF (paroxysmal atrial fibrillation) Take 1 tablet (60 mg total) by mouth daily as needed (paroxysmal afib) 30 tablet 4 Active atorvastatin (LIPITOR) 20 mg tabletIndicatio ns:Hypercholest eremia TAKE 1 TABLET BY MOUTH EVERY NIGHT 90 tablet 2 5 Active Eliquis 5 mg tablet TAKE 1 TABLET BY MOUTH TWICE DAILY 180 tablet 3 5 Active DILT-XR 180 mg 24 hr capsule TAKE 1 CAPSULE BY MOUTH DAILY 90 capsule 3 5 Active flecainide (TAMBOCOR) 100 mg tabletIndicatio ns:PAF (paroxysmal atrial fibrillation) TAKE 1 TABLET BY MOUTH TWICE DAILY 180 tablet 3 5 Active Active Problems Problem Noted Date Diagnosed Date 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 08/24/2022 Medication monitoring encounter 08/24/2022 Family history of aortic coarctation 05/19/2021 PAF (paroxysmal atrial fibrillation) 11/20/2019 Chronic anticoagulation 11/20/2019 Essential hypertension 11/20/2019 ANDERSON (obstructive sleep apnea) 11/20/2019 Obesity (BMI 30.0-34.9) 11/20/2019 Encounters Date Type Department Care Team Description 08/27/2025 8:45 AM CDT Office Visit [facility] [address] [address] [address] [place] [id number] Jarrod Whitaker MD PAF (paroxysmal atrial fibrillation) (Primary Dx); 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; Essential hypertension; Hypercholesteremia; Chronic anticoagulation from Last 3 Months Surgical History Surgery Date Site/Laterality Comments APPENDECTOMY 10/31/1967 - 10/30/1968 CATARACT EXTRACTION 03/31/2019 - 04/29/2019 DISCECTOMY SPINE SURGERY 10/31/1980 - 10/30/1981 Medical History Medical History Date Comments Anemia 1970 Cataract Hypertension Peptic ulceration 2004 Arthritis Heart disease A-FIB Sleep apnea 2019 Autoimmune disease Psoriatic arthritis 2019 Family History Medical History Relation Name Comments Diabetes Brother 1 Erik Hypertension Brother 1 Erik Coarctation of the aorta Brother 2 Frederick And bicuspid aortic valve Hearing loss Brother 2 Frederick Heart disease Brother 2 Frederick Hypertension Brother 2 Frederick Rashes / Skin problems Brother 2 Frederick Stroke Brother 2 Frederick carotid disease Cancer Daughter 1 Tia Miscarriages / Stillbirths Daughter 2 Inna Arthritis Father Vincent Cancer Father Vincent Hearing loss Father Vincent Cancer Father's Brother Asif Cancer Maternal Grandfather Tye Cancer Mother's Sister 1 Marlene Cancer Mother's Sister 2 Agnus Cancer Mother's Sister 3 Amina Cancer Sister 1 Shay Cancer Sister 2 Lily Diabetes Sister 2 Lily Cancer Sister 3 Jaci Relation Name Status Comments Brother 1 Erik Brother 2 Frederick Daughter 1 Tia Daughter 2 Inna Father Vincent Father's Brother Asif Maternal Grandfather Tye Mother's Sister 1 Marlene Mother's Sister 2 Agnus Mother's Sister 3 Amina Sister 1 Shay Sister 2 Lily Sister 3 Jaci Social History Tobacco Use Types Packs/Day Years Used Date Smoking Tobacco: Never Smokeless Tobacco: Never Tobacco Cessation:Counseling Given: Not Answered Alcohol Use Standard Drinks/Week Comments Yes 0 (1 standard drink = 0.6 oz pur e alcohol) less than 1 drink weekly Sex and Gender Information Value Date Recorded Sex Assigned at Not on file Legal 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 Gender Identity Male 04/19/2019 4:42 PM CDT Sexual Orientation Straight 04/19/2019 4: 42 PM CDT Last Filed Vital Signs Vital Sign Reading Time Taken Comments Blood Pressure 124/64 08/27/2025 8:48 AM CDT Pulse 66 08/27/2025 8:48 AM CDT Temperature - - Respiratory Rate - - Oxygen Saturation 97% 08/27/2025 8:48 AM CDT Inhaled Oxygen Concentration - - Weight 109.8 kg (242 lb) 08/27/2025 8:48 AM CDT Height 180.3 cm (5' 11) 08/27/2025 8:48 AM CDT Body Mass Index 33.75 08/27/2025 8:48 AM CDT Plan of Treatment Health Maintenance Due Date Last Done Comments Depression Screening 1948 Fall Risk Assessment 1948 Hepatitis C Screening 1950 Hepatitis B Screening 1966 Well Visit 65+ 2013 DTaP/Tdap/Td Vaccine (2 - Td or Tdap) 10/14/2021 10/14/2011, 05/31/2000 Covid-19 Vaccine (5 - 2024-2 6 season) 2025 05/07/2022, 06/16/2021, 01/19/2021, Additional history exists Influenza Vaccine (#1) 2025 , 07/29/2023, 08/18/2022, Additional history exists Pneumococcal vaccine 65+ Completed 12/22/2016, 03/2014 Zoster Vaccine Completed 12/24/2019, 09/01, 10/14/2011 Insurance MEDICARE [facility] [id number] Care Teams File Keeper Relationship Specialty Start Date End Date Stevie Payne MD PCP - General Family Medicine 03/31/19
== END 2025-10-01 12:58 | disposition home or self-care (01) ==
PROVIDERS: PCP Family Medicine; Visit Provider Nurse Practitioner Family
DX: H91.8X3 Other specified hearing loss, bilateral (principal)
CPT/HCPCS: 70553; A9577